=== PATIENT | male | born 1985 | race Caucasian/White ===

== ENCOUNTER 2020-06-16 10:09 | Outpatient (CLI) | payer OTHER ==
--- NOTE | 2020-06-16 17:14 | MRI Report ---
PROCEDURE: Knee RT W/O INDICATIONS: KNEE PAIN TECHNIQUE: Noncontrast sagittal PD fast spin echo and T2 fast spin echo with fat saturation, sagittal 3-D gradie nt sequence with fat saturation; coronal T1 spin echo and PD fast spin echo with fat saturation, and axial PD fast spin echo with fat saturation through the knee. COMPARISON: None. FINDINGS: Image quality: Excellent. Menisci: There is degenerative tear or intrasubstance degeneration of the posterior horn the medial m eniscus. The lateral meniscus demonstrates normal morphology and internal signal. The meniscal root ligaments appear intact. Cruciate ligaments: The anterior and posterior cruciate ligaments appear intact. There are couple o f cysts in the intercondylar notch anterior to the distal ACL insertion to the tibial eminence measur ing 1.2 x 0.8 cm and 1.1 x 0.6 cm. Medial structures: The medial collateral ligament appears intact. The posterior oblique ligament, s emimembranosus tendon insertions, and oblique popliteal ligament, and meniscocapsular junction appear intact. Visualized portions of the pes anserinus tendons appear normal. No abnormal bursal fluid. Lateral structures: The lateral collateral ligament, long and short heads of the biceps femoris tend on appear intact. The popliteus tendon appears normal; the popliteofibular ligament appears intact. The posterosuperior and anteroinferior popliteomeniscal fascicles appear intact. The arcuate and fa bellofibular ligaments appear intact, around the lateral inferior geniculate artery. Iliotibial band appears normal. Anterior structures: The quadriceps and patellar tendons appear intact. Patellar alignment is antonella l. No femoral trochlear dysplasia or ventral trochlear prominence. No edema in the infrapatellar fa t pad. Bones and cartilage: No bone marrow contusions or fractures. There is subchondral edema or cyst form ation patella. A 1 cm nodule is seen in the distal femoral metaphysis just above the intercondylar no tch left of the midline, demonstrating hypointense T1 and hyperintense T2 signal. Chondromalacia mart lla. There is near full thickness cartilage fissure of the patellar cartilage associated subchondral edema. Joint space: There is small knee joint fluid. No Richey?s cyst. Normal appearing synovial plicae ar e incidentally noted. IMPRESSION: 1. 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 2. Chondromalacia patella. 3. Two cysts in the condylar notch anterior to the distal TR insertion. 4. Small knee joint effusion. 5. Possible small enchondroma in the distal femoral metaphysis just above the intercondylar notch. Re commend x-ray of the knee for further evaluation. Reviewed by: Cayden Carrasco MD on 06/16/2020 5:13 PM PST Approved by: Cayden Carrasco MD on 06/16/2020 5:13 PM PST Station ID: [id number]
== END 2020-06-16 10:10 | disposition home or self-care (01) ==
LOC: DI 10:09
PROVIDERS: ATTEND Student in an Organized Health Care Education/Training Program
DX: S83.241A Other tear of medial meniscus, current injury, right knee, initial encounter (principal); M22.41 Chondromalacia patellae, right knee; M25.462 Effusion, left knee